=== PATIENT | male | born 1980 | race Caucasian/White ===

== ENCOUNTER 2018-07-04 09:36 | Inpatient (IN) | payer OTHER ==
[2018-07-04 12:33] VITALS: BMI 18.6
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
[2018-07-04] MEDS ORDERED: guaiFENesin/D-METHORPHAN HB 10 ML UNIT-DOSE CUPS PO PRN (15:24)
[2018-07-04] MEDS ORDERED: NICOTINE POLACRILEX 2 MG GUM BC PRN (15:24)
[2018-07-04] MEDS ORDERED: P-EPHED 60MG/TRIPROLIDI 2.5MG TABLET PO PRN (15:24)
[2018-07-04] MEDS ORDERED: MENTHOL/PHENOL 1 EACH UD MM PRN (15:24)
[2018-07-04] MEDS ORDERED: MAG HYDROX/AL HYDROX/SIMETH 30 ML UNIT-DOSE CUP PO PRN (15:24)
[2018-07-04] MEDS ORDERED: METHADONE HCL 10 MG TABLET (FOR DETOX USE ONLY) PO ONE ×2 (15:24→23:00)
[2018-07-04] MEDS ORDERED: IBUPROFEN 400 MG TABLET (FP) PO PRN (15:24)
[2018-07-04] MEDS ORDERED: MAGNESIUM HYDROX 2400MG/30ML ORAL SUSPENSION 30 ML CUP PO PRN (15:24)
[2018-07-04] MEDS ORDERED: ACETAMINOPHEN 325 MG TABLET (FP) PO PRN (15:24)
[2018-07-04] MEDS ORDERED: LOPERAMIDE HCL 2 MG CAPSULE PO PRN (15:24)
[2018-07-04] MEDS ORDERED: MAGNESIUM CITRATE 300 ML BOTTLE PO PRN (15:24)
[2018-07-04] MEDS: diazePAM 5 MG TABLET PO PRN ×2 (17:37→23:24)
[2018-07-04] MEDS: NICOTINE 14 MG/24 HOURS TOPICAL PATCH TD SCH (17:44)
[2018-07-04 21:44] LABS: URINE APPEARANCE CLEAR; URINE BILIRUBIN NEGATIVE (<2.0 mg/dL); URINE COLOR YELLOW; URINE GLUCOSE (UA) NEGATIVE (NEGATIVE); URINE KETONE NEGATIVE (NEGATIVE); URINE LEUK ESTERASE NEGATIVE (NEGATIVE); URINE NITRITE NEGATIVE (NEGATIVE); URINE PROTEIN NEGATIVE (NEGATIVE); URINE UROBILINOGEN NEGATIVE mg/dL (0.2-1.0)
[2018-07-04 21:49] LABS: EPI CELLS RARE /HPF (FEW); URINE MUCUS RARE
[2018-07-04] MEDS: THIAMINE HCL 100 MG TABLET (FP) PO SCH (23:20)
[2018-07-04] MEDS: CEPHALEXIN MONOHYDRATE 250 MG CAPSULE (FP) PO SCH (23:20)
[2018-07-04] MEDS: BACITRACIN 0.9 GM PACKET TP SCH (23:20)
[2018-07-05] MEDS: CEPHALEXIN MONOHYDRATE 250 MG CAPSULE (FP) PO SCH ×3 (05:48→18:24)
[2018-07-05] MEDS: diazePAM 5 MG TABLET PO PRN ×5 (05:49→22:27)
[2018-07-05] MEDS ORDERED: METHADONE HCL 10 MG TABLET (FOR DETOX USE ONLY) PO ONE (10:00)
[2018-07-05] MEDS: BACITRACIN 0.9 GM PACKET TP SCH ×2 (10:16→22:25)
[2018-07-05] MEDS: PRENATAL VITAMINS W/ FOLIC ACID TABLET (FP) PO SCH (10:17)
[2018-07-05] MEDS: NICOTINE 14 MG/24 HOURS TOPICAL PATCH TD SCH (10:17)
--- NOTE | 2018-07-05 11:23 | EKG ---
Test Reason : Blood Pressure : / mmHG Vent. Rate : 054 BPM Atrial Rate : 054 BPM P-R Int : 140 ms QRS Dur : 082 ms QT Int : 418 ms P-R-T Axes : 073 067 057 degrees QTc Int : 396 ms SINUS BRADYCARDIA WITH SINUS ARRHYTHMIA OTHERWISE NORMAL ECG NO PREVIOUS ECGS AVAILABLE Confirmed by MARIZA TENA, DONNA ([id number]) on 07/05/2018 11:22:58 AM Referred By: Mary Lou Mixon Confirmed By:DONNA DAWKINS MD
[2018-07-05] MEDS ORDERED: IBUPROFEN 600 MG TABLET (FP) PO PRN (11:50)
[2018-07-05] MEDS ORDERED: cloNIDine HCL 0.1 MG TABLET PO PRN (11:51)
--- NOTE | 2018-07-05 12:12 | PN ---
BHS COWS - Scale Resting Pulse: 1= [place] 81-100 Sweatin= Chills/Flushing Restless Observation: 1= Difficult to Sit Still Pupil Size: 1= Pupils >than Normal Bone or Joint Aches: 2= Severe Diffuse Aches Runny Nose/ Eye Tearin= Runny Nose/Eyes GI Upset > 30mins: 1= Stomach Cramp Tremor Observation of Outstretched Hands: 2= Slight Tremor Visible Yawning Observation: 1= 1-2x During Session Anxiety or Irritability: 2=Irritable/Anxious Goose Flesh Skin: 0=Smooth Skin COWS Score: 14 BHS Progress Note (SOAP) Subjective: joint pain running nose gi distress trouble sleep at night chronic inflammatory left elbow no discharge noted scars tissue encourage warm compress as frequent as possible through out the waking hours Objective: 07/05/18 12:15 Vital Signs Temperature 96.4 F L 07/05/18 09:28 Pulse Rate 59 L 07/05/18 09:28 Respiratory Rate 16 07/05/18 09:28 Blood Pressure 140/94 07/05/18 09:28 O2 Sat by Pulse Oximetry (%) Laboratory Last Values Urine Color Yellow 07/04/18 18:00 Urine Appearance Clear 07/04/18 18:00 Urine pH 5.0 (5.0-8.0) 07/04/18 18:00 Ur Specific [place] 1.018 (1.001-1.035) 07/04/18 18:00 Urine Protein Negative (NEGATIVE) 07/04/18 18:00 Urine Glucose (UA) Negative (NEGATIVE) 07/04/18 18:00 Urine Ketones Negative (NEGATIVE) 07/04/18 18:00 Urine Blood 2+ (NEGATIVE) H 07/04/18 18:00 Urine Nitrite Negative (NEGATIVE) 07/04/18 18:00 Urine Bilirubin Negative (<2.0 mg/dL) 07/04/18 18:00 Urine Urobilinogen Negative mg/dL (0.2-1.0) 07/04/18 18:00 Ur Leukocyte Esterase Negative (NEGATIVE) 07/04/18 18:00 Urine WBC (Auto) 1 /hpf (3-5) 07/04/18 18:00 Urine RBC (Auto) 6 /hpf (0-3) 07/04/18 18:00 Ur Epithelial Cells Rare /HPF (FEW) 07/04/18 18:00 Urine Mucus Rare 07/04/18 18:00 lab noted Assessment: 07/05/18 12:15 withdrawal sx soft tissue inflammatory Plan: continue detox warm compression continue keflex elevation of left arm
[2018-07-05] MEDS: BACLOFEN 10 MG TABLET (FP) PO SCH ×2 (13:22→22:25)
[2018-07-05] MEDS: GABAPENTIN 100 MG CAPSULE (FP) PO SCH ×2 (13:22→22:25)
--- NOTE | 2018-07-05 17:16 | CONSULT ---
[facility] Psychiatric Consult - Data Date of interview: 07/05/18 Admission source: [facility] Identifying data: First admission to [facility] for this 38 y/o male self-referred for detoxification treatment (opioid dependence).Patient is single ,a father of two,homeless,unemployed and deprived of financial assistance. Substance Abuse History: Confirmed by patient in this interview.Details in current [facility] report : Smoking history: Current every day smoker. Have you smoked in the past 12 months: Yes. Aproximately how many cigarettes per day: 20. Hx Chewing Tobacco Use: No. Initiated information on smoking cessation: Yes. 'Breaking Loose' booklet given: 07/04/18. - Substance & Tx. History. Hx Alcohol Use: No. Hx Substance Use: Yes. Substance Use Type: Heroin. Hx Substance Use Treatment: Yes (05/2018). - Substances Abused. Heroin. Route : Injection. Frequency: Daily. Amount used: 40 bags. Age of first use: 27. Date of Last Use: 07/03/18 Medical History: Anemia and a history of skin graft (both legs). Psychiatric History: No reported history of psychiatric hospitalizations.Past history of suboxone maintenance.Patient indicates that he used to be prescribed trazodone for insomnia.Mr Diamante declares that, except for substance abuse, he does not have a mental illness.Denies history of suicide attempts. Physical/Sexual Abuse/Trauma History: Patient denies. Additional Comment: Urine Drug Screen Results: AMRIT-Cocaine, OPI-Opiates, MTD- Methadone, OXY-Oxycodone, FEN-Fentanyl.Noted. Mental Status Exam - Mental Status Exam Alert and Oriented to: Time, Place, Person Cognitive Function: Good Patient Appearance: Unkempt, Disheveled Mood: Nervous, Withdrawn, Anxious Affect: Mood Congruent, Constricted Patient Behavior: Fatigued, Cooperative Speech Pattern: Clear, Appropriate Voice Loudness: Normal Thought Process: Goal Oriented Thought Disorder: Not Present Hallucinations: Denies Suicidal Ideation: Denies Homicidal Ideation: Denies Insight/Judgement: Poor Appetite: Fair Muscle strength/Tone: Normal Gait/Station: Other (not observed ; in bed for entire interview) Psychiatric Findings - Problem List ([place] 1, 2,3) (1) Opioid dependence with withdrawal Current Visit: Yes Status: Acute (2) Cocaine abuse Current Visit: Yes Status: Acute (3) Nicotine dependence Current Visit: Yes Status: Acute (4) Substance induced mood disorder Current Visit: Yes Status: Acute (5) Insomnia Current Visit: Yes Status: Acute - Initial Treatment Plan Initial Treatment Plan: Psychoeducation.Sleep hygiene.Detoxification.Trazodone 50 mg po hs.Patient is made aware of the risk of parasomnias.Agrees to this careplan.Observation.
[2018-07-05] MEDS: traZODone HCL 50 MG TABLET (FP) PO SCH (22:25)
[2018-07-05] MEDS: THIAMINE HCL 100 MG TABLET (FP) PO SCH (22:25)
[2018-07-05] MEDS: MELATONIN 5 MG TABLETS PO PRN (23:32)
[2018-07-06] MEDS: CEPHALEXIN MONOHYDRATE 250 MG CAPSULE (FP) PO SCH ×5 (01:17→23:22)
[2018-07-06] MEDS: GABAPENTIN 100 MG CAPSULE (FP) PO SCH ×3 (07:59→22:23)
[2018-07-06] MEDS: BACLOFEN 10 MG TABLET (FP) PO SCH ×3 (07:59→22:23)
[2018-07-06] MEDS ORDERED: METHADONE HCL 5 MG TABLET (FOR DETOX USE ONLY) PO ONE (10:00)
[2018-07-06] MEDS: BACITRACIN 0.9 GM PACKET TP SCH ×2 (10:37→22:23)
[2018-07-06] MEDS: PRENATAL VITAMINS W/ FOLIC ACID TABLET (FP) PO SCH (10:37)
[2018-07-06] MEDS: NICOTINE 14 MG/24 HOURS TOPICAL PATCH TD SCH (10:37)
[2018-07-06] MEDS: diazePAM 5 MG TABLET PO PRN ×4 (10:40→23:22)
--- NOTE | 2018-07-06 14:47 | PN ---
S COWS - Scale Resting Pulse: 0= [place] 80 or Below Sweatin= Chills/Flushing Restless Observation: 1= Difficult to Sit Still Pupil Size: 1= Pupils >than Normal Bone or Joint Aches: 2= Severe Diffuse Aches Runny Nose/ Eye Tearin= Nasal Congestion GI Upset > 30mins: 2= Nausea/Diarrhea Tremor Observation of Outstretched Hands: 2= Slight Tremor Visible Yawning Observation: 1= 1-2x During Session Anxiety or Irritability: 2=Irritable/Anxious Goose Flesh Skin: 0=Smooth Skin COWS Score: 13 BHS Progress Note (SOAP) Subjective: joints pain muscle aches sweat tremor restlessness irritable Objective: 07/06/18 14:52 Vital Signs Temperature 98.3 F 07/06/18 13:16 Pulse Rate 90 07/06/18 13:16 Respiratory Rate 18 07/06/18 13:16 Blood Pressure 141/88 07/06/18 13:16 O2 Sat by Pulse Oximetry (%) Laboratory Last Values Urine Color Yellow 07/04/18 18:00 Urine Appearance Clear 07/04/18 18:00 Urine pH 5.0 (5.0-8.0) 07/04/18 18:00 Ur Specific [place] 1.018 (1.001-1.035) 07/04/18 18:00 Urine Protein Negative (NEGATIVE) 07/04/18 18:00 Urine Glucose (UA) Negative (NEGATIVE) 07/04/18 18:00 Urine Ketones Negative (NEGATIVE) 07/04/18 18:00 Urine Blood 2+ (NEGATIVE) H 07/04/18 18:00 Urine Nitrite Negative (NEGATIVE) 07/04/18 18:00 Urine Bilirubin Negative (<2.0 mg/dL) 07/04/18 18:00 Urine Urobilinogen Negative mg/dL (0.2-1.0) 07/04/18 18:00 Ur Leukocyte Esterase Negative (NEGATIVE) 07/04/18 18:00 Urine WBC (Auto) 1 /hpf (3-5) 07/04/18 18:00 Urine RBC (Auto) 6 /hpf (0-3) 07/04/18 18:00 Ur Epithelial Cells Rare /HPF (FEW) 07/04/18 18:00 Urine Mucus Rare 07/04/18 18:00 lab noted Assessment: 07/06/18 14:55 withdrawal sx Plan: continue detox
[2018-07-06] MEDS: THIAMINE HCL 100 MG TABLET (FP) PO SCH (22:23)
[2018-07-06] MEDS: traZODone HCL 50 MG TABLET (FP) PO SCH (22:23)
[2018-07-07] MEDS: GABAPENTIN 100 MG CAPSULE (FP) PO SCH ×3 (07:18→22:06)
[2018-07-07] MEDS: CEPHALEXIN MONOHYDRATE 250 MG CAPSULE (FP) PO SCH ×4 (07:18→23:57)
[2018-07-07] MEDS: BACLOFEN 10 MG TABLET (FP) PO SCH ×3 (07:18→22:06)
[2018-07-07] MEDS: diazePAM 5 MG TABLET PO PRN ×2 (08:19→12:37)
[2018-07-07] MEDS ORDERED: METHADONE HCL 5 MG TABLET (FOR DETOX USE ONLY) PO ONE (10:00)
[2018-07-07] MEDS: BACITRACIN 0.9 GM PACKET TP SCH ×2 (10:29→22:06)
[2018-07-07] MEDS: PRENATAL VITAMINS W/ FOLIC ACID TABLET (FP) PO SCH (10:29)
[2018-07-07] MEDS: NICOTINE 14 MG/24 HOURS TOPICAL PATCH TD SCH (10:30)
--- NOTE | 2018-07-07 14:32 | PN ---
BHS Progress Note (SOAP) Subjective: ANXIETY,IRRITABILITY,RESTLESSNESS, AGITATION, TREMORS. REQUESTED FOR EXTRA VALIUM PRN EARLIER THIS MORNING. Objective: 07/07/18 14:32 Vital Signs 07/07/18 07/07/18 07/07/18 06:36 10:50 13:47 Temperature 96.7 F L 97.3 F L Pulse Rate 61 77 Respiratory 18 18 18 Rate Blood Pressure 124/77 128/82 Laboratory Tests 07/04/18 18:00 Urine Color Yellow Urine Appearance Clear Urine pH 5.0 Ur Specific [place] 1.018 Urine Protein Negative Urine Glucose (UA) Negative Urine Ketones Negative Urine Blood 2+ H Urine Nitrite Negative Urine Bilirubin Negative Urine Urobilinogen Negative Ur Leukocyte Esterase Negative Urine WBC (Auto) 1 Urine RBC (Auto) 6 Ur Epithelial Cells Rare Urine Mucus Rare Assessment: 07/07/18 14:32 WITHDRAWAL SX Plan: CONTINUE DETOX
[2018-07-07] MEDS: traZODone HCL 50 MG TABLET (FP) PO SCH (22:06)
[2018-07-07] MEDS: THIAMINE HCL 100 MG TABLET (FP) PO SCH (22:06)
[2018-07-07] MEDS: MELATONIN 5 MG TABLETS PO PRN (22:07)
[2018-07-08] MEDS: BACLOFEN 10 MG TABLET (FP) PO SCH ×2 (07:42→15:43)
[2018-07-08] MEDS: CEPHALEXIN MONOHYDRATE 250 MG CAPSULE (FP) PO SCH ×3 (07:42→17:11)
[2018-07-08] MEDS: GABAPENTIN 100 MG CAPSULE (FP) PO SCH ×2 (07:42→15:43)
[2018-07-08] MEDS ORDERED: METHADONE HCL 10 MG TABLET (FOR DETOX USE ONLY) PO ONE (10:00)
[2018-07-08] MEDS: BACITRACIN 0.9 GM PACKET TP SCH (10:30)
[2018-07-08] MEDS: PRENATAL VITAMINS W/ FOLIC ACID TABLET (FP) PO SCH (10:31)
[2018-07-08] MEDS: NICOTINE 14 MG/24 HOURS TOPICAL PATCH TD SCH (10:32)
--- NOTE | 2018-07-08 12:35 | PN ---
BHS Progress Note (SOAP) Subjective: Patient s/o irritability, anxiety and mild body aches. Objective: 07/08/18 12:34 Laboratory Tests 07/04/18 18:00 Urine Color Yellow Urine Appearance Clear Urine pH 5.0 Ur Specific [place] 1.018 Urine Protein Negative Urine Glucose (UA) Negative Urine Ketones Negative Urine Blood 2+ H Urine Nitrite Negative Urine Bilirubin Negative Urine Urobilinogen Negative Ur Leukocyte Esterase Negative Urine WBC (Auto) 1 Urine RBC (Auto) 6 Ur Epithelial Cells Rare Urine Mucus Rare Vital Signs Temperature 97.4 F L 07/08/18 10:06 Pulse Rate 61 07/08/18 10:06 Respiratory Rate 18 07/08/18 10:06 Blood Pressure 138/83 07/08/18 10:06 O2 Sat by Pulse Oximetry (%) Assessment: 07/08/18 12:34 Withdrawal syndrome Plan: Continue detox as per protocol Patient medically stable
[2018-07-08 18:20] VITALS: BP 121/74; PULSE 61; TEMP 97
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
--- NOTE | 2018-07-08 19:42 | DS ---
[facility] Detox Discharge Summary Admission Date: 07/04/18 Discharge Date: 07/08/18 - History Present History: Cocaine Dependence, Opioid Dependence Additional Comments: Patient stable. Patient administratively discharge. Follow up with with the ED if worsening symptoms are present. - Physical Exam Results Vital Signs: Vital Signs Temperature 97 F L 07/08/18 18:19 Pulse Rate 61 07/08/18 18:19 Respiratory Rate 16 07/08/18 18:19 Blood Pressure 121/74 07/08/18 18:19 O2 Sat by Pulse Oximetry (%) - Treatment Hospital Course: Detox Protocol Followed, Detoxed Safely, Responded well, Discharged Condition Good - Medication Discharge Medications: Ambulatory Orders traZODone HCL [Trazodone HCl] 100 mg PO HS 07/04/18 Cephalexin Monohydrate [Keflex -] 250 mg PO Q6HPO 2 Days #8 capsule 07/08/18 Cephalexin [Keflex] 250 mg PO QID 2 Days #8 capsule 07/08/18 - Diagnosis (1) Cocaine abuse Current Visit: Yes Status: Acute (2) Nicotine dependence Current Visit: Yes Status: Acute Qualifiers: Nicotine product type: cigarettes Substance use status: in withdrawal Qualified Code(s): F17.213 - Nicotine dependence, cigarettes, with withdrawal (3) Opioid dependence with withdrawal Current Visit: Yes Status: Acute - AMA Did Patient Leave Against Medical Advice: No (Administrative discharge)
[2018-07-09] MEDS ORDERED: METHADONE HCL 5 MG TABLET (FOR DETOX USE ONLY) PO ONE (06:00)
== END 2018-07-08 19:09 | disposition home or self-care (01) | DRG 773 ==
LOC: YASAS 09:36 → Y6N 13:30 → Y3N 07-06 17:08
PROC: HZ2ZZZZ Detoxification Services for Substance Abuse Treatment (ICD-10-PCS; principal; 2018-07-04)
DX: F11.23 Opioid dependence with withdrawal (principal); F14.10 Cocaine abuse, uncomplicated; F17.213 Nicotine dependence, cigarettes, with withdrawal; F19.24 Other psychoactive substance dependence with psychoactive substance-induced mood disorder; F31.89 Other bipolar disorder; L03.113 Cellulitis of right upper limb; Z94.5 Skin transplant status; Z86.2 Personal history of diseases of the blood and blood-forming organs and certain disorders involving the immune mechanism
CPT/HCPCS: 81003; 81015; 93005; 93010; J0475; J0735